=== PATIENT | female | born 1955 | race Caucasian/White ===

== ENCOUNTER 2018-09-01 11:38 | Emergency (ER) | payer BC ==
[2018-09-01 11:49] VITALS: BP 117/74
--- NOTE | 2018-09-01 12:15 | UC ---
Upper Extremity HPI - HPI Summary HPI Summary: 62 year old female with no PMH, no recent injuries/ trauma, no prior history of arm pain presents with L elbow pain since 08/24 after twisting open a tani jar. Patient is very active, working out with rowing, boxing, etc. Pain has not improved, has tried compression, ice, advil 400mg every 6 hours, no GI complaints. Denies other pain, symptoms, no numbness, tingling, weakness. - History of Current Complaint Chief Complaint: UCUpperExtremity Stated Complaint: ARM INJURY Time Seen by Provider: 09/01/18 12:08 Hx Obtained From: Patient ?: No Onset/Duration: Sudden Onset, Lasting Days Severity Initially: Moderate Severity Currently: Moderate Pain Intensity: 2 Pain Scale Used: 0-10 Numeric Location Of Pain: Is Discrete @ - left elbow, lateral Character: Sharp - with movement, Aching - at rest Aggravating Factor(s): Lifting, Flexion, Extension Alleviating Factor(s): Ice, OTC Meds Associated Signs And Symptoms: Positive: Negative - Allergies/Home Medications Allergies/Adverse Reactions: Allergies Allergy/AdvReac Type Severity Reaction Status Date / Time No Known Allergies Allergy Verified 09/01/18 11:49 PMH/Surg Hx/FS Hx/Imm Hx Previously Healthy: Yes - no DM - Surgical History Surgical History: Yes Surgery Procedure, Year, and Place: 2 c-sections. Gall bladder removal. Partial thyroidectomy. Uterine ablation - Family History Known Family History: Positive: Cardiac Disease - paternal, Diabetes - paternal , Other - Breast CA - Social History Alcohol Use: Occasionally Substance Use Type: None Smoking Status (MU): Never Smoked Tobacco - Immunization History Most Recent Influenza Vaccination: 2016 Most Recent Tetanus Shot: up to date Most Recent Pneumonia Vaccination: never Review of Systems All Other Systems Reviewed And Are Negative: Yes Constitutional: Positive: Negative Musculoskeletal: Positive: Arthralgia, Decreased ROM, Myalgia Is Patient Immunocompromised?: No Physical Exam Triage Information Reviewed: Yes Appearance: Well-Appearing, No Pain Distress, Well-Nourished Vital Signs: Initial Vital Signs Temp 98.3 F 09/01/18 11:46 Pulse 68 09/01/18 11:46 Resp 12 09/01/18 11:46 BP 117/74 09/01/18 11:46 Pulse Ox 100 09/01/18 11:46 Vital Signs Reviewed: Yes Eyes: Positive: Conjunctiva Clear ENT: Positive: Hearing grossly normal Musculoskeletal: Positive: Strength Intact - L shoulder, L wrist., No Edema, Other: - full ROM of L elbow, pain with full exenstion, + pain at lateral epi with resistence against wrist flexion/ extension, TTP over later epicondyle, severe, mild TTP over lateral forearm, no bruising, strength intact throughout elbow, however painful with resistent flex/ ext. no pain with sup/ pron. Neurological Exam: Normal Neurological: Positive: Other: - full sensation to light touch L fingers. Psychological Exam: Normal Skin Exam: Normal Upper Extremity Course/Dx - Course Course Of Treatment: Lateral epicondylitis - Use brace - Prednisone taper to decrease inflammation, pain - Do not take advil while taking steroids - Naproxen/ Alleve after steroids as needed for pain - If no improvement after steroids, contact orthopedics for further evaluation - continue to ice frequently. - Continue to rest- increase activities slowly. - Differential Dx/Diagnosis Differential Diagnosis/HQI/PQRI: Hematoma, Laceration, Osteomyelitis, Strain, Sprain Provider Diagnosis: Lateral epicondylitis, left elbow Discharge - Sign-Out/Discharge Documenting (check all that apply): Patient Departure All imaging exams completed and their final reports reviewed: No Studies - Discharge Plan Condition: Fair Disposition: HOME Prescriptions: methylPREDNISolone [Medrol Dosepak 4 MG*] 1 birgit PO .SEE BIRGIT INSTRUCTION #1 birgit Patient Education Materials: Tennis Elbow (ED) Referrals: Angy Lorenzo MD [Primary Care Provider] - Additional Instructions: Lateral epicondylitis - Use brace - Prednisone taper to decrease inflammation, pain - Do not take advil while taking steroids - Naproxen/ Alleve after steroids as needed for pain - If no improvement after steroids, contact orthopedics for further evaluation - continue to ice frequently. - Continue to rest- increase activities slowly. - Billing Disposition and Condition Condition: FAIR Disposition: Home
== END 2018-09-01 12:30 | disposition home or self-care (01) ==
LOC: UCEAST 11:38
DX: M77.12 Lateral epicondylitis, left elbow (principal)
CPT/HCPCS: 99212; G0463

== ENCOUNTER 2018-09-12 11:15 | Emergency (ER) | payer BC ==
[2018-09-12 11:45] VITALS: BP 109/63
--- NOTE | 2018-09-12 12:49 | UC ---
Upper Extremity HPI - HPI Summary HPI Summary: 62 year old female present with pain to right thumb, severe. patient states she was connecting grass bag to mower and fell backwards, extending thumb [place] a "crack" with immediate pain. + ice, + rest. Took motrin, minimal help. Noted mild swelling around thumb. No prior injuries/ surgeries. - History of Current Complaint Chief Complaint: UCUpperExtremity Stated Complaint: thumb injury Time Seen by Provider: 09/12/18 12:16 Hx Obtained From: Patient ?: No Onset/Duration: Sudden Onset, Lasting Hours Severity Initially: Severe Severity Currently: Severe Pain Intensity: 9 Pain Scale Used: 0-10 Numeric Character: Sharp, Stiffness Aggravating Factor(s): Movement Alleviating Factor(s): Nothing Associated Signs And Symptoms: Positive: Swelling. Negative: Redness, Bruising , Fever, Weakness, Numbness/Tingling - Allergies/Home Medications Allergies/Adverse Reactions: Allergies Allergy/AdvReac Type Severity Reaction Status Date / Time No Known Allergies Allergy Verified 09/12/18 11:45 PMH/Surg Hx/FS Hx/Imm Hx Previously Healthy: Yes - Surgical History Surgical History: Yes Surgery Procedure, Year, and Place: 2 c-sections. Gall bladder removal. Partial thyroidectomy. Uterine ablation - Family History Known Family History: Positive: Cardiac Disease - paternal, Diabetes - paternal , Other - Breast CA, Non-Contributory - Social History Alcohol Use: Occasionally Substance Use Type: None Smoking Status (MU): Never Smoked Tobacco - Immunization History Most Recent Influenza Vaccination: 2016 Most Recent Tetanus Shot: up to date Most Recent Pneumonia Vaccination: never Review of Systems All Other Systems Reviewed And Are Negative: Yes Constitutional: Positive: Negative Musculoskeletal: Positive: Arthralgia, Decreased ROM, Myalgia Neurological: Positive: Negative Is Patient Immunocompromised?: No Physical Exam Triage Information Reviewed: Yes Appearance: Well-Appearing, No Pain Distress, Well-Nourished Vital Signs: Initial Vital Signs Temp 97.6 F 09/12/18 11:42 Pulse 75 09/12/18 11:42 Resp 16 09/12/18 11:42 BP 109/63 09/12/18 11:42 Pulse Ox 100 09/12/18 11:42 Vital Signs Reviewed: Yes Eyes: Positive: Conjunctiva Clear Musculoskeletal: Positive: Other: - TTP over base of thumb, thenar em, 2nd MCP. Decreased strength with thumb abd/ add, flexion due to pain, but able to do all movements. cap refill < 2 secs all fingers, full ROM, strength finger 2- 5. rad/ ulnar2+, no TTP over wrist, full wrist, elbow ROM. Neurological Exam: Normal Neurological: Positive: Alert, Other: - SITLT right hand Psychological Exam: Normal Skin Exam: Normal Upper Extremity Course/Dx - Course Course Of Treatment: Thumb STrain - Keep Thumb/ Wrist splint at all times, even while sleeping for 3-4 days, may remove for showering, at rest - Naproxen every 12 hours x 2-3 days for swelling, pain - Increase ice, keep hand raised. - Differential Dx/Diagnosis Provider Diagnosis: Sprain of hand, thumb, right Discharge - Sign-Out/Discharge Documenting (check all that apply): Patient Departure All imaging exams completed and their final reports reviewed: No Studies - Discharge Plan Condition: Good Disposition: HOME Patient Education Materials: Finger Sprain (ED) Referrals: Angy Lorenzo MD [Primary Care Provider] - Domi Bender MD [Medical Doctor] - (Follow up in 5-7 days if no improvement ) Additional Instructions: - Keep Thumb/ Wrist splint at all times, even while sleeping for 3-4 days, may remove for showering, at rest - Naproxen every 12 hours x 2-3 days for swelling, pain - Increase ice, keep hand raised. - Billing Disposition and Condition Condition: GOOD Disposition: Home
== END 2018-09-12 12:57 | disposition home or self-care (01) ==
LOC: UCEAST 11:15
DX: S63.601A Unspecified sprain of right thumb, initial encounter (principal); X50.0XXA Overexertion from strenuous movement or load, initial encounter; Y93.H2 Activity, gardening and landscaping; Y92.017 Garden or yard in single-family (private) house as the place of occurrence of the external cause; Y99.8 Other external cause status
CPT/HCPCS: 99212; G0463

== ENCOUNTER 2019-04-10 14:42 | Emergency (ER) | payer BC ==
--- OUTSIDE RECORDS SUMMARY | 2019-04-10 14:59 | XMS REPORT | Continuity of Care Document ---
:1955 External Reference #:[id number] Author Name Jeff Jean-Baptiste, OD Address 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 Social History Type Date Description Comments Sex Unknown ETOH Use Occasionally consumes alcohol Tobacco Use Start: Unknown Patient has never smoked Smoking Status Reviewed: 02/24/19 Patient has never smoked Allergies, Adverse Reactions, Alerts Description No Known Drug Allergies Medications Active Medications SIG Qnty Indications Ordering Provider Date Celexa 10mg Unknown Tablets Levoxyl 25mcg Unknown Tablets Omeprazole 20mg Unknown Capsules DR Immunizations Description No Information Available Vital Signs Date Vital Result Comment 02/24/2019 1:29pm Intraocular Pressure Right Eye 18 mmHg Intraocular Pressure Left Eye 18 mmHg 10/24/2018 2:58pm Intraocular Pressure Right Eye 18 mmHg Intraocular Pressure Left Eye 18 mmHg Results Description No Information Available Procedures Date Code Description Status 02/24/2019 17751 Ophthalmoscopy Subsequent Completed 02/02/2019 20256 Eye Exam Est Intermediate Completed 10/29/2018 80072 Ophthalmoscopy Subsequent Completed 10/24/2018 14667 Eye Exam Est Intermediate Completed Medical Devices Description No Information Available Encounters Type Date Location Provider Dx Diagnosis Office Visit 02/24/2019 Main Office Jeff Jean-Baptiste, OD 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 Plan of Treatment 02/24/2019 - Jeff Jean-Baptiste, ODH35.413 Lattice degeneration of retina, [id number] Vitreous degeneration, [id number] Degenerative myopia, bilateralFollow up:6 mos DFE, sooner PRN Functional Status Description No Information Available Mental Status Description No Information Available Referrals Description No Information Available
[2019-04-10 15:06] VITALS: BP 122/81
--- NOTE | 2019-04-10 15:16 | UC ---
General HPI - HPI Summary HPI Summary: apprx 11am c/o dysuria, freq /urg no back pain + bladder pain no rash No recent illness drank a lot of water but didn't help no fever /chills hx uti's - History of Current Complaint Chief Complaint: UCGU Stated Complaint: URINARY COMPLAINT Time Seen by Provider: 04/10/19 15:15 Hx Obtained From: Patient Pain Intensity: 5 - Allergy/Home Medications Allergies/Adverse Reactions: Allergies Allergy/AdvReac Type Severity Reaction Status Date / Time No Known Allergies Allergy Verified 04/10/19 15:06 Home Medications: Home Medications Citalopram TAB* [Celexa TAB*] 20 mg PO BEDTIME 03/28/12 [History Confirmed 04/10] Ibuprofen TAB* [Advil TAB*] 400 mg PO Q4H PRN 03/28/12 [History Confirmed ] Mometasone NASAL (NF) [Nasonex (NF)] 1 spray NASAL DAILY PRN 03/28/12 [History Confirmed 04/10/19] Cefuroxime 500 MG TAB (NF) [Ceftin 500 MG TAB (NF)] 500 mg PO BID 7 Days #14 tab 04/10/19 [Rx] Lansoprazole [Prevacid] 15 mg PO DAILY 04/10/19 [History Confirmed 04/10/19] Levothyroxine Sodium [Levoxyl] 25 mcg PO DAILY 04/10/19 [History Confirmed 04/10] Phenazopyridine 200 mg (NF) [Pyridium 200 MG tab *] 200 mg PO TID PRN #15 tab [Rx] PMH/Surg Hx/FS Hx/Imm Hx Previously Healthy: Yes - Surgical History Surgical History: Yes Surgery Procedure, Year, and Place: 2 c-sections. Gall bladder removal. Partial thyroidectomy. Uterine ablation - Family History Known Family History: Positive: Cardiac Disease - paternal, Diabetes - paternal , Other - Breast CA, Non-Contributory - Social History Alcohol Use: Occasionally Substance Use Type: None Smoking Status (MU): Never Smoked Tobacco - Immunization History Most Recent Influenza Vaccination: 2016 Most Recent Tetanus Shot: up to date Most Recent Pneumonia Vaccination: never Review of Systems All Other Systems Reviewed And Are Negative: Yes Constitutional: Positive: Negative Skin: Positive: Negative Eyes: Positive: Negative ENT: Positive: Negative Respiratory: Positive: Negative Cardiovascular: Positive: Negative Gastrointestinal: Positive: Negative Genitourinary: Positive: Other - see hpi Motor: Positive: Negative Neurovascular: Positive: Negative Musculoskeletal: Positive: Negative Neurological/Mental Status: Positive: Negative Psychological: Positive: Negative Is Patient Immunocompromised?: No Physical Exam Triage Information Reviewed: Yes Appearance: Well-Appearing, Well-Nourished Vital Signs: Initial Vital Signs Temp 98.4 F 04/10/19 15:02 Pulse 66 04/10/19 15:02 Resp 12 04/10/19 15:02 BP 122/81 04/10/19 15:02 Pulse Ox 99 04/10/19 15:02 Vital Signs Reviewed: Yes Eye Exam: Normal ENT Exam: Normal Neck exam: Normal Neck: Positive: Supple Respiratory Exam: Normal Respiratory: Positive: Chest non-tender, Lungs clear, Normal breath sounds, No respiratory distress Cardiovascular: Positive: No Murmur, Pulses Normal, Brisk Capillary Refill. Negative: RRR - extra beat heard x 1 during exam, correlates with radial pulse d /t pt, she occasionally has palpitations, but not currently. Will check with pcp. Abdominal Exam: Other - no cvat no abd pad + subj bladded pain with dysuria Musculoskeletal Exam: Normal Neurological Exam: Normal - nonfocal Psychological Exam: Normal - nad Skin Exam: Normal - nondiaphoretic no visible or reported rash Course/Dx - Course Course Of Treatment: Declines work note. Reviewed coa / tx plan. Questions as posed answered to the best of my ability. Reviewed the need to have urine rechecked for blood (trace blood on dip) when sx have improved. She is aware, and reports that she already is followed by PCP and urology for this. Reviewed last cx (2018) in [facility] -> strep. will rx ceftin, pending cx. - Diagnoses Provider Diagnosis: UTI (urinary tract infection) Discharge ED - Sign-Out/Discharge Documenting (check all that apply): Patient Departure All imaging exams completed and their final reports reviewed: No Studies - Discharge Plan Condition: Stable Disposition: HOME Prescriptions: Cefuroxime 500 MG TAB (NF) [Ceftin 500 MG TAB (NF)] 500 mg PO BID 7 Days #14 tab Phenazopyridine 200 mg (NF) [Pyridium 200 MG tab *] 200 mg PO TID PRN #15 tab PRN Reason: Pain - Moderate Patient Education Materials: Urinary Tract Infection in Women (DC) Referrals: Chante Patrick DO [Primary Care Provider] - Additional Instructions: Hydrate. Urine culture in the lab. You will be notified if antibiotic modification is needed. Please seek medical attention for worse or new problems. - Billing Disposition and Condition Condition: STABLE Disposition: Home
[2019-04-10] MEDS ORDERED: Phenazopyridine TAB* 100 MG PO ONE (15:49)
--- NOTE | 2019-04-12 07:09 | UC ---
- Progress Note Progress Note: Was seen on 04/10 with suspicion of UTI. Please call to advise that cultre was negative. If symptoms improved with antibiotic, should complete jabier treatment (culture was done soon after onset of symptoms). She is aware to follow up with PCP and urologiy regarding blood in urine. Course/Dx - Diagnoses Provider Diagnoses: UTI (urinary tract infection) Discharge ED - Sign-Out/Discharge Documenting (check all that apply): Post-Discharge Follow Up All imaging exams completed and their final reports reviewed: No Studies - Discharge Plan Condition: Stable Disposition: HOME Prescriptions: Cefuroxime 500 MG TAB (NF) [Ceftin 500 MG TAB (NF)] 500 mg PO BID 7 Days #14 tab Phenazopyridine 200 mg (NF) [Pyridium 200 MG tab *] 200 mg PO TID PRN #15 tab PRN Reason: Pain - Moderate Patient Education Materials: Urinary Tract Infection in Women (DC) Referrals: Chante Patrick DO [Primary Care Provider] - Additional Instructions: Hydrate. Urine culture in the lab. You will be notified if antibiotic modification is needed. Please seek medical attention for worse or new problems. - Billing Disposition and Condition Condition: STABLE Disposition: Home
== END 2019-04-10 16:00 | disposition home or self-care (01) ==
LOC: UCEAST 14:42
DX: N39.0 Urinary tract infection, site not specified (principal)
CPT/HCPCS: 81003; 87086; 99212; A9270-GY; G0463